=== PATIENT | male | born 1980 | race Caucasian/White ===

== ENCOUNTER 2022-09-09 20:33 | Emergency (ER) | payer OTHER, SELFPAY ==
[2022-09-09 20:35] VITALS: BP 110/79; PULSE 102; RESP 18; TEMP 36.7; O2SAT 99; BMI 21.2
[2022-09-09 20:36] VITALS: BP 110/79; PULSE 102; RESP 20
--- NOTE | 2022-09-09 20:51 | XR_ITS ---
The [address] [address] Patient Name: MAXIMILIANO MOMIN MRN: [id number] date: 1980 Sex: M Assigned Patient Location: ER Current Patient Location: ER Accession/Order Number: [id number] Exam Date: 09/09/2022 20:15 Report Date: 09/09/2022 22:57 At the request of: GRACIA ROLLINS Procedure: XR sacrum coccyx min 2V EXAM: XR sacrum coccyx min 2V HISTORY: trauma COMPARISON: None. TECHNIQUE: Frontal and lateral views of the sacrum and coccyx are performed. FINDINGS: There is no acute fracture. There is preservation of the sacral arcuate lines. Normal soft tissues. IMPRESSION: No acute fracture is identified. Electronically authenticated by: TERRANCE BARAHONA Date: 09/09/2022 22:57
--- NOTE | 2022-09-09 20:51 | ED_ITS ---
HPI - General Adult General Chief complaint: Fall Stated complaint: Back pain Time Seen by Provider: 09/09/22 20:45 Source: patient Mode of arrival: ambulance History of Present Illness HPI narrative: the patient to have a history of right oytta-xsr-aepj amputation that was done August 28, due to history of infection is coming to the Emergency Room after he fell down while he was not using his walker O his wheelchair on his right side of the body and hitting his head possibly. Although the patient does not remember what happened but he remember waking up to find himself on the floor,he denies any headache but he is complaining of back pain and right pain in his stump . There was no nausea no vomiting or other concerns Review of systems otherwise negative Related Data Home Medications Medication Instructions Recorded Confirmed apixaban 5 mg tablet (Eliquis) 5 mg PO BID 09/09/22 09/09/22 cephalexin 500 mg capsule 500 mg PO Q6H 09/09/22 09/09/22 cyclobenzaprine 5 mg tablet 5 mg PO Q8H PRN muscle spasm 09/09/22 09/09/22 fentanyl 25 mcg/hr transdermal 1 patch topical Q72H 09/09/22 09/09/22 patch insulin aspart U-100 100 unit/mL 1 sliding scale dose subcut 09/09/22 09/09/22 (3 mL) subcutaneous pen .sliding scale insulin glargine 100 unit/mL (3 40 unit subcut DAILY 09/09/22 09/09/22 mL) subcutaneous pen (Lantus Solostar U-100 Insulin) losartan 50 mg tablet 50 mg PO DAILY 09/09/22 09/09/22 metoprolol succinate 25 mg 25 mg PO DAILY 09/09/22 09/09/22 tablet,extended release 24 hr oxycodone 15 mg tablet 15 mg PO Q3H PRN pain 09/09/22 09/09/22 Allergies Allergy/AdvReac Type Severity Reaction Status Date / Time acetaminophen Allergy Severe Verified 09/09/22 20:48 citalopram Allergy Severe Verified 09/09/22 20:48 gabapentin Allergy Severe Verified 09/09/22 20:48 gentian kenrick Allergy Severe Verified 09/09/22 20:48 haloperidol Allergy Severe Verified 09/09/22 20:48 ibuprofen Allergy Severe Verified 09/09/22 20:48 levamisole Allergy Severe Verified 09/09/22 20:48 levetiracetam Allergy Severe Verified 09/09/22 20:48 metoclopramide Allergy Severe Verified 09/09/22 20:48 NSAIDS (Non-Steroidal Allergy Severe Verified 09/09/22 20:48 Anti-Inflamma Penicillins Allergy Severe Verified 09/09/22 20:48 pregabalin Allergy Severe Verified 09/09/22 20:48 prochlorperazine Allergy Severe Verified 09/09/22 20:48 promethazine Allergy Severe Verified 09/09/22 20:48 Review of Systems ROS Status of ROS 10 or more systems reviewed and unremarkable except as noted in history and below [facility] Medical History (Updated 09/10/22 @ 01:19 by Cyndy Kruger MD) Exam Narrative Exam Narrative: Nurses notes and vital signs reviewed and patient is not hypoxic. General: Well-appearing and in no apparent distress. Skin: Warm, dry, no pallor noted. No rash. Head: Normocephalic, atraumatic. Neck: Supple, non-tender. Eye: Pupils are equal, round and EOMI. No scleral icterus. Ears, Nose, Mouth, and Throat: TM are clear, no nasal mucosal hypertrophy. Oral mucosa is moist, no posterior oropharynx erythema, uvula is mid-line Cardiovascular: Regular Rate and Rhythm without murmur, gallop or rub. Respiratory: No accessory muscle use or respiratory distress. Lungs are clear to auscultation, no wheezing, rales or rhonchi Chest Wall: no tenderness Back: No midline thoracic or lumbar vertebral tenderness. some tenderness at the sacral level , No CVA tenderness Musculoskeletal: right gyvok-jvp-dksf amputation with clean wound with no signs of infection and tenderness on palpation GI: Abdomen is soft, non-distended. Normal bowel sounds. No masses appreciated. No tenderness to palpation. No rebound, guarding, or rigidity noted. Neurological: A&O x4. No cranial nerve dysfunction observed. No truncal ataxia. Moves all extremities. Sensation intact. Psychiatric: Cooperative and interactive. Normal mood and affect. Constitutional Vital Signs - 24 hr 09/09/22 20:35 09/09/22 20:36 09/10/22 00:30 Temperature 98.1 F Pulse Rate 102 H 102 H Pulse Rate [Monitor] 102 H Respiratory Rate 18 20 18 Blood Pressure 110/79 104/78 Blood Pressure [Left Arm] 110/79 Pulse Oximetry 99 91 L Oxygen Delivery Method Room Air 09/10/22 01:00 09/10/22 01:00 09/10/22 01:30 Temperature Pulse Rate 103 H 100 H Pulse Rate [Monitor] Respiratory Rate 20 17 Blood Pressure 124/81 H 124/81 H 113/80 H Blood Pressure [Left Arm] Pulse Oximetry 98 95 Oxygen Delivery Method Course Vital Signs Vital signs: Vital Signs Temperature 98.1 F 09/09/22 20:35 Pulse Rate 102 H 09/09/22 20:35 Respiratory Rate 18 09/09/22 20:35 Blood Pressure 110/79 09/09/22 20:35 Pulse Oximetry 99 09/09/22 20:35 Oxygen Delivery Method Room Air 09/09/22 20:35 Temperature 98.1 F 09/09/22 20:35 Pulse Rate 100 H 09/10/22 01:00 Respiratory Rate 17 09/10/22 01:00 Blood Pressure 113/80 H 09/10/22 01:30 Pulse Oximetry 95 09/10/22 01:00 Oxygen Delivery Method Room Air 09/09/22 20:35 Medical Decision Making MDM Narrative Medical decision making narrative: CBC and chemistry showed that the patient have some leukocytosis with no signs of infection he denies any burning with urination or any frequency also denies any constipation as he have regular bowel movements daily The patient mentioned having history of nausea with the pain he was provided with morphine in addition to Zofran in the Emergency Room X-ray of the sacral level was not good quality and CT of this pelvis was obtained showing some thickening of the bladder which the patient had there is a discussed with him and he said that he had no urinary symptoms the patient also had patient and I did discuss with him there is a lot of the CAT scan and explained to him that he needed to take his laxative daily especially that he is using opiates Patient also had no acute finding regarding full CT of the cervical spine was x- ray of his right femur White count the patient discharged home continue with supportive care The patient is to followup with primary care physician in next 2-3 days or to return to the emergency department should any of the signs or symptoms worsen or new symptoms develop. The patient agrees with the following Diagnosis and Treatment plan and the patient will be discharged home. Lab Data Labs: Lab Results 06/11/23 Range/Units 22:40 WBC 15.9 H (4.0-11.0) 10^3/uL RBC 4.15 L (4.70-6.10) 10^6/uL Hgb 10.1 L (14.0-18.0) g/dL Hct 33.0 L (42.0-54.0) % MCV 79.5 L (80.0-94.0) fL MCH 24.3 L (25.9-34.0) pg MCHC 30.6 (29.9-35.2) g/dL RDW 16.5 H (11.0-15.0) % Plt Count 701 H (150-450) 10^3/uL MPV 9.3 L (9.5-13.5) fL Neut % (Auto) 80.7 H (43.0-75.0) % Lymph % (Auto) 10.2 L (20.5-60.0) % [place] % (Auto) 6.8 (1.7-12.0) % Eos % (Auto) 0.4 L (0.9-7.0) % Baso % (Auto) 1.0 (0.2-2.0) % Neut # (Auto) 12.8 H (1.4-6.5) 10^3/uL Lymph # (Auto) 1.6 (1.2-3.8) 10^3/uL [place] # (Auto) 1.1 H (0.3-0.8) 10^3/uL Eos # (Auto) 0.1 (0.0-0.7) 10^3/uL Baso # (Auto) 0.2 H (0.0-0.1) 10^3/uL Abs Immat Gran (auto) 0.15 H (0.00-0.03) 10^3/uL Imm/Tot Granulo (auto) 0.9 H (0.0-0.5) % Sodium 131 L (136-145) mmol/L Potassium 3.8 (3.5-5.1) mmol/L Chloride 96 L (98-107) mmol/L Carbon Dioxide 21.8 (21.0-32.0) mmol/L Anion Gap 17.0 BUN 17.0 (7.0-18.0) mg/dL Creatinine 1.12 (0.70-1.30) mg/dL Est GFR ( Amer) >60 (>=60) Est GFR (Non-Af Amer) >60 (>=60) BUN/Creatinine Ratio 15.2 Glucose 371 H (74-106) mg/dL Calcium 9.7 (8.5-10.1) mg/dL Total Bilirubin 0.5 (0.2-1.0) mg/dL AST 61 H (15-37) U/L ALT 72 H (16-63) U/L Alkaline Phosphatase 149 H (46-116) U/L Total Protein 9.3 H (6.4-8.2) g/dL Albumin 3.9 (3.4-5.0) g/dL Globulin 5.4 g/dL Albumin/Globulin Ratio 0.7 Discharge Plan Discharge Chief Complaint: Fall Clinical Impression: Contusion of sacral region, Fall Patient Disposition: Home, Self-Care Time of Disposition Decision: 01:18 Prescriptions / Home Meds: No Action Eliquis 5 mg tablet 5 mg PO BID cephalexin 500 mg capsule 500 mg PO Q6H cyclobenzaprine 5 mg tablet 5 mg PO Q8H PRN (Reason: muscle spasm) fentanyl 25 mcg/hr patch 72 hour 1 patch topical Q72H insulin aspart U-100 100 unit/mL (3 mL) insulin pen 1 sliding scale dose SUBCUT .sliding scale insulin glargine [Lantus Solostar U-100 Insulin] 100 unit/mL (3 mL) insulin pen 40 unit SUBCUT DAILY losartan 50 mg tablet 50 mg PO DAILY metoprolol succinate 25 mg tablet extended release 24 hr 25 mg PO DAILY Patient Comments: hold for SBP under 100 oxycodone 15 mg tablet 15 mg PO Q3H PRN (Reason: pain) Instructions: Contusion in Adults (ED) Stand Alone Forms: Portal Instructions Referrals: Physician,Non-Staff, MD [Primary Care Provider] - 1 week Discharge Date/Time: 09/10/22 01:51
--- NOTE | 2022-09-09 20:51 | CT_ITS ---
[address] [address] Patient Name: MAXIMILIANO MOMIN MRN: [id number] date: 1980 Sex: M Assigned Patient Location: ED.MAIN Current Patient Location: Accession/Order Number: [id number] Exam Date: 09/09/2022 21:55 Report Date: 09/09/2022 22:26 At the request of: GRACIA ROLLINS Procedure: CT head/brain wo con EXAM: CT head/brain wo con REASON FOR EXAM: Male, 41 years, trauma. TECHNIQUE: Computed tomography of the head is performed in the axial projection from the base of the skull to the vertex. Sagittal and coronal reconstructed images are performed. Dose reduction techniques were achieved by using automated exposure control and/or adjustment of mA and/or KVP according to patient size and/or use of iterative reconstruction technique. COMPARISON: 03/18/2021. FINDINGS: Normal soft tissues. Normal calvarium. The ventricles have normal size and configuration for patient's age. Normal brain parenchyma. Normal basal ganglia. Normal brainstem. The cerebellum is normal. There is no evidence for acute ischemia. There is no evidence for acute hemorrhage. The visualized paranasal sinuses are clear. IMPRESSION: Normal CT of the brain. Electronically authenticated by: TERRANCE BARAHONA Date: 09/09/2022 22:26
--- NOTE | 2022-09-09 20:51 | ECG_ITS ---
The [facility] Test Date: 2022-09-09 Pat Name: Tex Ortiz Department: Room: - Gender: Male [employer]: : 1980 Requested By: FIFI FONTENOT Order Number: [id number] Reading MD: FIFI FONTENOT Measurements Intervals [place] Rate: 94 P: 65 CA: 170 QRS: 74 QRSD: 86 T: 60 QT: 336 QTc: 388 Interpretive Statements 1100 Sinus rhythm 4068 Nonspecific Twave abnormality 9130 borderline ECG No previous ECG available for comparison Electronically Signed On 09-10-2022 6:24:08 EDT by FIFI FONTENOT
--- NOTE | 2022-09-09 20:51 | XR_ITS ---
The [address] [address] Patient Name: MAXIMILIANO MOMIN MRN: [id number] date: 1980 Sex: M Assigned Patient Location: ER Current Patient Location: ER Accession/Order Number: [id number] Exam Date: 09/09/2022 20:15 Report Date: 09/09/2022 22:53 At the request of: GRACIA ROLLINS Procedure: XR femur RT 2V EXAM: XR femur RT 2V HISTORY: stump /fall COMPARISON: None. TECHNIQUE: Frontal and lateral views of the right femur are performed. FINDINGS: There appears to been a recent qkpsr-ehx-egoq amputation. There are superficial rogelio along the distal stump. No acute fracture is seen. IMPRESSION: Postoperative changes of recent cpcyn-stf-bsqi amputation. No fracture. Electronically authenticated by: TERRANCE BARAHONA Date: 09/09/2022 22:53
--- NOTE | 2022-09-09 22:29 | CT_ITS ---
The [address] [address] Patient Name: MAXIMILIANO MOMIN MRN: [id number] date: 1980 Sex: M Assigned Patient Location: ER Current Patient Location: ER Accession/Order Number: [id number] Exam Date: 09/09/2022 23:50 Report Date: 09/10/2022 00:21 At the request of: GRACIA ROLLINS Procedure: CT pelvis wo con EXAM: CT pelvis wo con HISTORY: fall COMPARISON: CT abdomen and pelvis examination dated 02/06/2021. TECHNIQUE: Noncontrast axial CT images through the pelvis were obtained with coronal and sagittal reformats. Dose reduction techniques were achieved by using automated exposure control and/or adjustment of mA and/or kV according to patient size and/or use of iterative reconstruction technique. FINDINGS: No acute fracture or dislocation is seen. The femoral heads are well-seated in the acetabula. The sacroiliac joints and pubic symphysis are preserved. There are mild degenerative changes of both hip joints. There is no disproportionate fatty muscular atrophy about the pelvis and hips. There is a prominent amount of stool throughout the imaged colon without evidence of bowel obstruction. There is marked urinary bladder wall thickening with perivesicular fat stranding. There is mild atherosclerotic disease. There are prominent and mildly enlarged bilateral inguinal and iliac chain lymph nodes with a right external iliac chain lymph node measuring up to 1.2 cm in short axis diameter (series 3, image 64). IMPRESSION: 1. No acute fracture or dislocation is seen. 2. Marked urinary bladder wall thickening with perivesicular fat stranding. Please correlate with urinalysis for infection. 3. Prominent amount of stool throughout the colon without evidence of bowel obstruction. 4. Prominent and mildly enlarged bilateral iliac chain and inguinal lymph nodes which could be reactive. Electronically authenticated by: Bisi SCHOFIELD Date: 09/10/2022 00:21
[2022-09-09 22:49] LABS: Basophils Absolute Auto 0.2 10^3/uL (0.0-0.1); Eosinophils Absolute Auto 0.1 10^3/uL (0.0-0.7); Eosinophils Percent Auto 0.4 % (0.9-7.0); Hemoglobin 10.1 g/dL (14.0-18.0); Immature Granulocytes Abs Auto 0.15 10^3/uL (0.00-0.03); Immature Granulocytes Pct Auto 0.9 % (0.0-0.5); Lymphocytes Absolute Auto 1.6 10^3/uL (1.2-3.8); Lymphocytes Percent Auto 10.2 % (20.5-60.0); Mean Corpuscular HGB Conc 30.6 g/dL (29.9-35.2); Mean Corpuscular Hemoglobin 24.3 pg (25.9-34.0); Mean Corpuscular Volume 79.5 fL (80.0-94.0); Mean Platelet Volume 9.3 fL (9.5-13.5); Monocytes Absolute Auto 1.1 10^3/uL (0.3-0.8); Monocytes Percent Auto 6.8 % (1.7-12.0); Neutrophils Absolute Auto 12.8 10^3/uL (1.4-6.5); Neutrophils Percent Auto 80.7 % (43.0-75.0); Platelet Count 701 10^3/uL (150-450); Red Blood Count 4.15 10^6/uL (4.70-6.10); Red Cell Distribution Width 16.5 % (11.0-15.0); White Blood Count 15.9 10^3/uL (4.0-11.0)
[2022-09-09 23:10] LABS: Alanine Aminotransferase 72 U/L (16-63); Albumin Globulin Ratio 0.7; Albumin Level 3.9 g/dL (3.4-5.0); Alkaline Phosphatase 149 U/L (46-116); Aspartate Amino Transferase 61 U/L (15-37); BUN Creatinine Ratio 15.2; Bilirubin Total 0.5 mg/dL (0.2-1.0); Calcium 9.7 mg/dL (8.5-10.1); Carbon Dioxide 21.8 mmol/L (21.0-32.0); Estimated GFR (African America >60 (>=60); Estimated GFR (Non-African Ame >60 (>=60); Globulin 5.4 g/dL; Glucose 371 mg/dL (74-106); Total Protein 9.3 g/dL (6.4-8.2)
[2022-09-09] MEDS: ONDANSETRON PF 4 MG/2 ML VIAL (23:30)
[2022-09-09] MEDS: MORPHINE SULFATE 2 MG/ML SYRINGE 1 MG IV (23:43)
[2022-09-09] MEDS: FAMOTIDINE/PF 20 MG/2 ML VIAL IV (23:43)
[2022-09-10] MEDS: 0.9 % SODIUM CHLORIDE 1,000 ML 1000 ML IV (00:25)
[2022-09-10 00:30] VITALS: BP 104/78; PULSE 102; RESP 18; O2SAT 91
--- NOTE | 2022-09-10 00:32 | PC.NURSE ---
patient stated the morphine helped with the pain but has worn off. patient still nauseous and requesting ice chips. physician notified.
[2022-09-10 00:39] LABS: Sodium 131 mmol/L (136-145)
[2022-09-10 00:40] LABS: Chloride 96 mmol/L (98-107); Potassium 3.8 mmol/L (3.5-5.1)
[2022-09-10 01:00] VITALS: BP 124/81; PULSE 100; PULSE 103; RESP 17; RESP 20; O2SAT 95; O2SAT 98
[2022-09-10] MEDS: MORPHINE SULFATE 2 MG/ML SYRINGE 1 MG IV (01:04)
[2022-09-10 01:30] VITALS: BP 113/80
== END 2022-09-10 01:51 | disposition home or self-care (01) ==
PROVIDERS: Emergency Provider Emergency Medicine
DX: S30.0XXA Contusion of lower back and pelvis, initial encounter (principal); W19.XXXA Unspecified fall, initial encounter; Z89.611 Acquired absence of right leg above knee; Z79.899 Other long term (current) drug therapy; Z79.4 Long term (current) use of insulin
CPT/HCPCS: 36415; 70450; 72192; 72220; 73552; 80053; 85025; 93005; 96374; 96376; 99285

== ENCOUNTER 2022-09-17 14:25 | Outpatient (REF) | payer OTHER, SELFPAY ==
[2022-09-17 14:42] LABS: Bilirubin Urine NEGATIVE (NEGATIVE); Blood Urine NEGATIVE (NEGATIVE); Clarity Urine CLEAR (CLEAR); Color Urine LT. YELLOW (YELLOW); Glucose Urine UA >=1000 mg/dL (NEGATIVE); Ketones Urine NEGATIVE (NEGATIVE); Leukocyte Esterase Urine NEGATIVE (NEGATIVE); Nitrite Urine NEGATIVE (NEGATIVE); Protein Urine NEGATIVE (NEG/TRACE); Urobilinogen Urine 0.2 EU/dL (0.2-1.0); pH Urine 5.5 (5.0-9.0)
[2022-09-17 14:44] LABS: Urine Microscopic Indicated NO
== END 2022-09-17 14:26 ==
LOC: LAB 14:25
DX: R30.9 Painful micturition, unspecified (principal)
CPT/HCPCS: 81003